=== PATIENT | female | born 1975 | race Caucasian/White ===

== ENCOUNTER 2017-04-13 17:38 | Emergency (ER) | payer SELFPAY ==
[~2017-04-13] VITALS: Ht 154.9 cm; Wt 68.9 kg
[2017-04-13 18:42] VITALS: Ht 154.9 cm; Wt 68.9 kg
[2017-04-14 00:30] VITALS: BP 136/94
== END 2017-04-14 00:30 | disposition home or self-care (01) ==
LOC: ED 17:38
DX: R21 Rash and other nonspecific skin eruption (principal); R03.0 Elevated blood-pressure reading, without diagnosis of hypertension; Z88.0 Allergy status to penicillin
CPT/HCPCS: J2930